=== PATIENT | female | born 1985 | race Caucasian/White ===

== ENCOUNTER 2017-04-15 16:42 | Emergency (ER) | payer OTHER ==
[~2017-04-15] VITALS: Ht 165.1 cm; Wt 157.7 kg
[2017-04-15 18:10] VITALS: BP 138/75
[2017-04-15] MEDS ORDERED: SULFAMETHOX/TRIMETH DS 800-160 MG/TABLET PO ONE (18:30)
[2017-04-15] MEDS ORDERED: IBUPROFEN 800 MG TABLET PO ONE (18:30)
== END 2017-04-15 19:17 | disposition home or self-care (01) ==
LOC: EMS 16:47
DX: L02.01 Cutaneous abscess of face (principal)
CPT/HCPCS: 99283